=== PATIENT | male | born 1990 | race Caucasian/White ===

== ENCOUNTER 2017-07-05 03:04 | Emergency (ER) | payer SELFPAY ==
[2017-07-05 03:33] LABS: BASOPHILS 0.2 % (0-2); EOSINOPHILS 0.3 % (0-7); HEMATOCRIT 49.9 % (42.0-54.0); HEMOGLOBIN 16.5 g/dL (13.5-17.5); IMMATURE GRANULOCYTES 0.4 % (0-5); LYMPHOCYTES 12.4 % (15-50); MCH 29.4 pg (26.0-34.0); MCHC 33.1 g/dL (31.0-37.0); MCV 88.8 fL (80.0-100.0); MEAN PLATELET VOLUME 10.2 fL (7.4-10.4); MONOCYTES 12.2 % (2-11); NEUTROPHILS 74.5 % (40-80); PLATELET COUNT 291 10x3/uL (130-400); RBC 5.62 10x6/uL (4.20-6.10)
[2017-07-05 03:42] LABS: APTT 27.8 SECONDS (22.8-39.4); D-DIMER-QUANTITATIVE 0.3 ug/mLFEU (0.20-0.54); INR 1.1 (0.85-1.17); PROTIME 13.8 SECONDS (11.6-15.0)
[2017-07-05 03:58] LABS: ALBUMIN 4.8 g/dL (3.4-5.0); ALKALINE PHOSPHATASE 75 U/L (46-116); ALT (SGPT) 81 U/L (10-68); BILIRUBIN - TOTAL 0.87 mg/dL (0.2-1.3); CALC OSMOLALITY 282 mosm/kg (275-300); CALCIUM 9.6 mg/dL (8.5-10.1); CARBON DIOXIDE 27.3 mmol/L (21.0-32.0); CHLORIDE - SERUM 101 mmol/L (98-107); CREATININE - SERUM 1.8 mg/dL (0.6-1.3); GLUCOSE 76 mg/dL (74-106); POTASSIUM - SERUM 4.5 mmol/L (3.5-5.1); PROTEIN - SERUM 8.9 g/dL (6.4-8.2); SODIUM 141 mmol/L (136-145); UREA NITROGEN 20 mg/dL (7-18); eGFR NON AFRICAN AMERICAN 48 mL/min (90-120)
[2017-07-05 04:01] LABS: CKMB 4.2 U/L (0.0-3.6); CREATINE KINASE 349 UL (21-232); TROPONIN-I < 0.017 ng/mL (0.000-0.060)
[2017-07-05 04:22] LABS: UDS - AMPHET POSITIVE QUAL (NEGATIVE); UDS - BARB NEGATIVE QUAL (NEGATIVE); UDS - BENZO POSITIVE QUAL (NEGATIVE); UDS - COCAINE NEGATIVE QUAL (NEGATIVE); UDS - OPIATE POSITIVE QUAL (NEGATIVE); UDS - PCP NEGATIVE QUAL (NEGATIVE); UDS - THC NEGATIVE QUAL (NEGATIVE)
== END 2017-07-05 04:20 | disposition left against medical advice (07) ==
LOC: D.ER 03:04
PROVIDERS: Family Medicine
DX: F15.988 Other stimulant use, unspecified with other stimulant-induced disorder (principal); N17.9 Acute kidney failure, unspecified; D72.829 Elevated white blood cell count, unspecified; R00.0 Tachycardia, unspecified

== ENCOUNTER 2018-03-29 21:50 | Emergency (ER) | payer MEDICAID ==
[~2018-03-29] VITALS: Ht 182.9 cm; Wt 86.4 kg
[2018-03-29 21:56] VITALS: Ht 182.9 cm; Wt 86.4 kg
[2018-03-29] MEDS ORDERED: TORADOL10 MG PO (22:55)
[2018-03-29 23:15] VITALS: BP 143/75
== END 2018-03-29 23:15 | disposition home or self-care (01) ==
LOC: D.ER 21:50
DX: S62.314A Displaced fracture of base of fourth metacarpal bone, right hand, initial encounter for closed fracture (principal); Y04.0XXA Assault by unarmed brawl or fight, initial encounter; Y93.89 Activity, other specified; Y92.89 Other specified places as the place of occurrence of the external cause; F17.200 Nicotine dependence, unspecified, uncomplicated

== ENCOUNTER 2018-12-14 18:38 | Emergency (ER) | payer SELFPAY ==
[~2018-12-14] VITALS: Ht 182.9 cm; Wt 75.0 kg
[~2018-12-14 18:38] MED LIST: TORADOL10 MG PO
[2018-12-14 18:40] VITALS: Ht 182.9 cm; Wt 75.0 kg
[2018-12-14] MEDS ORDERED: MUPIROCIN22 GM TOPICAL (20:26)
[2018-12-14 20:40] VITALS: BP 136/72
== END 2018-12-14 20:40 | disposition home or self-care (01) ==
LOC: D.ER 18:38
DX: L01.00 Impetigo, unspecified (principal)